=== PATIENT | male | born 1990 | race Caucasian/White ===

== ENCOUNTER 2020-08-28 19:59 | Emergency (ER) | payer OTHER ==
[~2020-08-28] VITALS: Ht 170.2 cm; Wt 58.9 kg
[2020-08-28] MEDS ORDERED: LAMICTAL100 MG PO (20:16)
[2020-08-28] MEDS ORDERED: ZOFRAN4 MG PO (20:17)
[2020-08-28] MEDS ORDERED: SEROQUEL100 MG PO (20:17)
--- OUTSIDE RECORDS SUMMARY | 2020-08-28 22:32 | XMS ---
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 EOlivia VISIT COUNT (12 MO.) 1 Joselito Bowling [address] [place] [address] TOTAL 2 NOTE: Visits indicate total known visits. ED/UCC VISIT TRACKING (12 MO.) 08/28/2020 20:00 LUANA Saenz [place] TYPE: Emergency COMPLAINT: - OD W/ VOMITING 08/15/2020 13:46 Joselito [facility]ENN[facility] OR TYPE: Emergency DIAGNOSES: - Abscess - Wound Check - Cutaneous abscess, unspecified INPATIENT VISIT TRACKING (12 MO.) No inpatient visits to display in this time frame [email or web address]
[2020-08-28] MEDS ORDERED: CLONIDINE HCL0.1 MG PO (22:40)
[2020-08-28] MEDS ORDERED: ONDANSETRON ODT8 MG PO (22:40)
== END 2020-08-28 23:03 | disposition home or self-care (01) ==
LOC: ED 19:59
DX: T40.1X1A Poisoning by heroin, accidental (unintentional), initial encounter (principal); F17.200 Nicotine dependence, unspecified, uncomplicated; Z79.899 Other long term (current) drug therapy
CPT/HCPCS: 80053; 81001; 85025; 96374; 99284-25; J2405; J7030